=== PATIENT | male | born 1990 | race Two or more races ===

== ENCOUNTER 2022-11-06 12:24 | Emergency (ER) | payer MEDICAID, OTHER ==
[~2022-11-06] VITALS: Ht 188 cm; Wt 104.4 kg
[2022-11-06] MEDS ORDERED: ACETAMINOPHEN 500 MG TAB PO ONE (16:15)
[2022-11-06] MEDS ORDERED: KETOROLAC TROMETH 60MG/2ML VIAL IM ONE (16:15)
[2022-11-06] MEDS ORDERED: IBUP-1454 PO (16:21)
[2022-11-06] MEDS ORDERED: METH-1181 PO (16:21)
[2022-11-06 17:09] VITALS: BP 116/69; PULSE 65; RESP 16; TEMP 97.4; O2SAT 100
== END 2022-11-06 16:57 | disposition home or self-care (01) ==
LOC: ER 12:24
DX: M54.2 Cervicalgia (principal); M79.18 Myalgia, other site; V49.9XXA Car occupant (driver) (passenger) injured in unspecified traffic accident, initial encounter; Y93.89 Activity, other specified; Y92.488 Other paved roadways as the place of occurrence of the external cause; Y99.8 Other external cause status
CPT/HCPCS: 96372; 99283; J1885